=== PATIENT | male | born 1970 | race Asian ===

== ENCOUNTER 2020-01-22 21:42 | Emergency (ER) | payer MEDICAID ==
[~2020-01-22] VITALS: Ht 185.4 cm; Wt 91.2 kg
[2020-01-22 21:45] VITALS: BP_SYST 153
--- NOTE | 2020-01-22 21:56 | NUR ---
Patient to ER bed 2 to gown for evaluation. Side rails up.
--- NOTE | 2020-01-22 21:56 | NUR ---
Patient came to ER with family. C/O blood in stool x today. Patient reported, had colonoscopy on 01/07/2020, today after had bowel movement, fresh blood stool. A/O,X4, denies pain, vss.
--- NOTE | 2020-01-22 21:57 | NUR ---
ER Dr. Izaguirre at bedside examining patient.
--- NOTE | 2020-01-22 22:02 | NUR ---
Patient transported to radiology for CT scan, accompanied by RT.
--- NOTE | 2020-01-22 22:17 | NUR ---
Blood for labwork drawn from twister tender paper. Patient tolerated well.
[2020-01-22 22:30] LABS: BASOPHILS % (AUTO) 0.5 % (0.0-2.0); EOSINOPHILS # (AUTO) 0.1 K/uL (0.0-0.4); EOSINOPHILS % (AUTO) 1.6 % (0.0-4.0); HEMATOCRIT 41.2 % (36-54); HEMOGLOBIN 14.1 g/dL (14.0-18.0); LYMPHOCYTES # (AUTO) 2.4 K/uL (1.0-5.5); LYMPHOCYTES % (AUTO) 25.9 % (20.5-51.5); MEAN CORPUSCULAR HEMOGLOBIN 30 pg (27-31); MEAN CORPUSCULAR HGB CONC 34 % (32-36); MEAN CORPUSCULAR VOLUME 86 fL (79.0-98.0); MONOCYTES # (AUTO) 0.8 K/uL (0.0-1.0); MONOCYTES % (AUTO) 9.1 % (1.7-9.3); NEUTROPHILS # (AUTO) 5.7 K/uL (1.8-7.7); NEUTROPHILS % (AUTO) 62.9 % (40.0-70.0); PLATELET COUNT (AUTO) 253 K/uL (130-430); RED BLOOD CELL COUNT(AUTO) 4.77 MIL/uL (4.2-6.2); RED CELL DISTRIBUTION WIDTH 13.3 % (9.0-15.0); WHITE BLOOD COUNT (AUTO) 9.1 K/uL (4.8-10.8)
[2020-01-22 22:42] LABS: CALCIUM 8.3 mg/dL (8.4-11.0); CREATININE 1.11 mg/dL (0.55-1.30); POTASSIUM 3.3 mmol/L (3.5-5.1)
[2020-01-22 22:48] LABS: ALBUMIN 3.5 g/dL (3.4-4.8); TOTAL BILIRUBIN 0.2 mg/dL (0.0-1.0)
--- NOTE | 2020-01-22 23:16 | NUR ---
Dr. Izaguirre at bedside to explain for treatment plan.
[2020-01-22 23:25] VITALS: BP_SYST 153
--- NOTE | 2020-01-22 23:25 | NUR ---
Patient given written and verbal discharge instructions and verbalizes understanding. ER MD discussed with patient the results and treatment provided. Patient in stable condition. ID arm band removed. NO Rx given. Patient educated on pain management and to follow up with [facility]D [facility]. Pain Scale 0/10. Opportunity for questions provided and answered.
== END 2020-01-22 23:25 | disposition home or self-care (01) ==
LOC: SED 21:42
DX: K62.5 Hemorrhage of anus and rectum (principal)
CPT/HCPCS: 36415; 80053; 85025; 99284